=== PATIENT | female | born 1950 | race Caucasian/White ===

== ENCOUNTER → 2018-02-25 13:25 | Outpatient (CLI) | payer OTHER, SELFPAY | PROVIDERS: Family Provider Family Medicine; PCP Family Medicine; Visit Provider Physician Assistant | DX: R30.0 Dysuria (principal) | CPT/HCPCS: 87086 ==

== ENCOUNTER → 2018-02-28 16:02 | Outpatient (CLI) | payer OTHER, SELFPAY ==
[2018-02-28 17:45] LABS: Appearance Urine UA SL CLOUDY; Bilirubin Urine UA NEGATIVE (NEGATIVE); Color Urine UA YELLOW; Glucose Urine UA NEGATIVE (Normal); Ketones Urine UA NEGATIVE (NEGATIVE); Leukocyte Esterase Urine UA 1+ (NEGATIVE); Nitrite Urine UA Negative (Negative); Occult Blood Urine UA 3+ (Negative); Protein Urine UA NEGATIVE (Negative); Urobilinogen Urine UA 0.2 E.U./dL (0.2); pH Urine UA 7.5 (4.5-8.0)
[2018-02-28 17:55] LABS: Bacteria Urine Occasional (0-1); RBC Urine 10-30/HPF (0-5/HPF); Squamous Epithelial Cell Urine 0-1 /HPF; WBC Urine 5-10/HPF (0-5/HPF)
[2018-02-28 17:56] LABS: Culture Indicated Urine Specimen Cultured
== END ==
PROVIDERS: PCP Family Medicine; Visit Provider Family Medicine
DX: R31.9 Hematuria, unspecified (principal)
CPT/HCPCS: 81001; 87086

== ENCOUNTER → 2018-09-21 12:45 | Outpatient (CLI) | payer OTHER, SELFPAY ==
[2018-09-21 12:59] LABS: Bacteria Urine None Seen; RBC Urine None Seen (0-5/HPF)
[2018-09-21 13:23] LABS: Appearance Urine UA CLEAR; Bilirubin Urine UA NEGATIVE (NEGATIVE); Color Urine UA YELLOW; Glucose Urine UA NEGATIVE (Negative); Ketones Urine UA NEGATIVE (NEGATIVE); Leukocyte Esterase Urine UA NEGATIVE (NEGATIVE); Nitrite Urine UA NEGATIVE (Negative); Occult Blood Urine UA NEGATIVE (Negative); Protein Urine UA NEGATIVE (Negative); Specific Gravity Urine UA <=1.005 (1.000-1.035); Urobilinogen Urine UA 0.2 E.U./dL (0.2)
[2018-09-21 13:34] LABS: Culture Indicated Urine Cult Not Indicated; Squamous Epithelial Cell Urine 1-5 /HPF; WBC Urine 0-1/HPF (0-5/HPF)
== END ==
PROVIDERS: PCP Family Medicine; Visit Provider Family Medicine
DX: R30.0 Dysuria (principal)
CPT/HCPCS: 81001

== ENCOUNTER → 2018-12-13 16:48 | Outpatient (CLI) | payer OTHER, SELFPAY ==
[2018-12-13 16:54] LABS: Bacteria Urine None Seen; RBC Urine None Seen (0-5/HPF)
[2018-12-13 17:31] LABS: Hemoglobin A1C% w Est Avg Glu 6.1 % (4.0-6.0)
[2018-12-13 17:45] LABS: Appearance Urine UA CLEAR; Bilirubin Urine UA NEGATIVE (NEGATIVE); Blood Urea Nitrogen 9 mg/dL (7-17); C-Reactive Protein Quant 2.3 mg/dL (<1.0); Calcium 9.7 mg/dL (8.4-10.2); Carbon Dioxide 33 mmol/L (22-32); Chloride 91 mmol/L (98-107); Color Urine UA YELLOW; Estimated Glomerular Filt Rate > 60.0 mL/min (>60); Glucose 132 mg/dL (80-110); Glucose Urine UA NEGATIVE (Negative); HEMOLYSIS < 15 (0-50); Ketones Urine UA NEGATIVE (NEGATIVE); Leukocyte Esterase Urine UA NEGATIVE (NEGATIVE); Nitrite Urine UA NEGATIVE (Negative); Occult Blood Urine UA NEGATIVE (Negative); Potassium 3.5 mmol/L (3.4-5.1); Protein Urine UA NEGATIVE (Negative); Sodium 134 mmol/L (137-145); Specific Gravity Urine UA 1.015 (1.000-1.035); Urobilinogen Urine UA 0.2 E.U./dL (0.2)
[2018-12-13 17:54] LABS: Amorphous Sediment Urine 1+; Culture Indicated Urine Cult Not Indicated; Squamous Epithelial Cell Urine 1-5 /HPF (0-5/HPF); WBC Urine 0-1/HPF (0-5/HPF)
[2018-12-13 17:57] LABS: Creatinine Urine Random 67.3 mg/dL
[2018-12-13 18:13] LABS: Thyroid Stimulating Hormone 4.52 uIU/mL (0.47-4.68)
[2018-12-13 18:17] LABS: Microalbumi Creatinin Ratio Ur 8.9 ug/mg CR (<30); Microalbumin Urine Random < 0.6 mg/dL (0-1.6)
[2018-12-13 18:20] LABS: Erythrocyte Sedimentation Rate 21 MM/HR (0-20)
== END ==
PROVIDERS: PCP Family Medicine; Visit Provider Family Medicine
DX: E03.9 Hypothyroidism, unspecified (principal); E11.9 Type 2 diabetes mellitus without complications; I10 Essential (primary) hypertension; M35.00 Sjogren syndrome, unspecified; R30.0 Dysuria
CPT/HCPCS: 36415; 80048; 81001; 82043; 82570; 83036; 84443; 85651; 86140

== ENCOUNTER → 2019-04-02 11:10 | Outpatient (CLI) | payer OTHER, SELFPAY ==
[2019-04-02 12:19] LABS: Appearance Urine UA CLOUDY; Bilirubin Urine UA NEGATIVE (NEGATIVE); Glucose Urine UA TRACE g/dL (Negative); Ketones Urine UA TRACE (NEGATIVE); Leukocyte Esterase Urine UA 2+ (NEGATIVE); Nitrite Urine UA POSITIVE (Negative); Occult Blood Urine UA 3+ (Negative); Protein Urine UA 3+ (Negative)
[2019-04-02 12:29] LABS: Color Urine UA BROWN; pH Urine UA 6.5 (4.5-8.0)
[2019-04-02 13:37] LABS: Amorphous Sediment Urine 1+; Bacteria Urine Few (2-10); Culture Indicated Urine Specimen Cultured; RBC Urine 30-100/HPF (0-5/HPF); Squamous Epithelial Cell Urine 1-5 /HPF (0-5/HPF); WBC Urine 30-100/HPF (0-5/HPF)
== END ==
PROVIDERS: PCP Family Medicine; Visit Provider Family Medicine
DX: R30.0 Dysuria (principal); R35.0 Frequency of micturition
CPT/HCPCS: 81001; 87077; 87086; 87186

== ENCOUNTER → 2019-04-15 11:36 | Outpatient (CLI) | payer OTHER, SELFPAY ==
[2019-04-15 13:11] LABS: Appearance Urine UA CLEAR; Bilirubin Urine UA NEGATIVE (NEGATIVE); Color Urine UA YELLOW; Glucose Urine UA NEGATIVE (Negative); Ketones Urine UA NEGATIVE (NEGATIVE); Leukocyte Esterase Urine UA 3+ (NEGATIVE); Nitrite Urine UA NEGATIVE (Negative); Occult Blood Urine UA TRACE-LYSED (Negative); Protein Urine UA NEGATIVE (Negative); Specific Gravity Urine UA <=1.005 (1.000-1.035); Urobilinogen Urine UA 0.2 E.U./dL (0.2)
[2019-04-15 13:13] LABS: pH Urine UA 6.5 (4.5-8.0)
[2019-04-15 13:19] LABS: RBC Urine 1-5/HPF (0-5/HPF)
[2019-04-15 13:20] LABS: Bacteria Urine Many (>30); Culture Indicated Urine Cult Not Indicated; Squamous Epithelial Cell Urine 10-30 /HPF (0-5/HPF); WBC Urine >100/HPF (0-5/HPF)
== END ==
PROVIDERS: PCP Family Medicine; Visit Provider Family Medicine
DX: R30.0 Dysuria (principal); R31.9 Hematuria, unspecified
CPT/HCPCS: 81001; 87077; 87086; 87186

== ENCOUNTER → 2019-04-24 10:59 | Outpatient (CLI) | payer OTHER, SELFPAY ==
[2019-04-24 11:11] LABS: Bacteria Urine None Seen; RBC Urine None Seen (0-5/HPF); WBC Urine None Seen (0-5/HPF)
[2019-04-24 11:59] LABS: Appearance Urine UA CLEAR; Bilirubin Urine UA NEGATIVE (NEGATIVE); Color Urine UA YELLOW; Glucose Urine UA NEGATIVE (Negative); Ketones Urine UA NEGATIVE (NEGATIVE); Leukocyte Esterase Urine UA NEGATIVE (NEGATIVE); Nitrite Urine UA NEGATIVE (Negative); Occult Blood Urine UA NEGATIVE (Negative); Protein Urine UA NEGATIVE (Negative); Specific Gravity Urine UA <=1.005 (1.000-1.035); Urobilinogen Urine UA 0.2 E.U./dL (0.2)
[2019-04-24 12:48] LABS: Culture Indicated Urine Cult Not Indicated; Squamous Epithelial Cell Urine 10-30 /HPF (0-5/HPF)
== END ==
PROVIDERS: PCP Family Medicine; Visit Provider Family Medicine
DX: N39.0 Urinary tract infection, site not specified (principal)
CPT/HCPCS: 81001

== ENCOUNTER → 2019-10-15 16:15 | Outpatient (CLI) | payer OTHER, SELFPAY ==
[2019-10-15 16:50] LABS: Appearance Urine UA SL CLOUDY; Bilirubin Urine UA NEGATIVE (NEGATIVE); Color Urine UA YELLOW; Glucose Urine UA NEGATIVE (Negative); Ketones Urine UA NEGATIVE (NEGATIVE); Leukocyte Esterase Urine UA 2+ (NEGATIVE); Protein Urine UA NEGATIVE (Negative); Specific Gravity Urine UA <=1.005 (1.000-1.035)
[2019-10-15 16:59] LABS: Nitrite Urine UA NEGATIVE (Negative); Occult Blood Urine UA NEGATIVE (Negative); RBC Urine 0-1/HPF (0-5/HPF); pH Urine UA 6.5 (4.5-8.0)
[2019-10-15 17:00] LABS: Bacteria Urine Occasional (0-1); Culture Indicated Urine Specimen Cultured; Squamous Epithelial Cell Urine 0-1 /HPF (0-5/HPF); Transitional Epi Cells Urine 1-5/HPF (0-5/HPF); WBC Urine 30-100/HPF (0-5/HPF)
== END ==
PROVIDERS: PCP Family Medicine; Referring Provider Family Medicine; Visit Provider Family Medicine
DX: R30.0 Dysuria (principal)
CPT/HCPCS: 81001; 87086

== ENCOUNTER → 2020-08-03 12:22 | Outpatient (CLI) | payer OTHER, SELFPAY ==
[2020-08-03 13:50] LABS: Alanine Aminotransferase 11 IU/L (<35); Albumin 4.4 g/dL (3.5-5.0); Albumin Globulin Ratio 1.7 (1.0-2.8); Alkaline Phosphatase 65 U/L (38-126); Aspartate Aminotransferase 20 IU/L (14-36); BUN Creatinine Ratio 17.9 (6-22); Bilirubin Total 0.6 mg/dL (0.2-1.3); Blood Urea Nitrogen 10 mg/dL (7-17); Carbon Dioxide 35 mmol/L (22-32); Chloride 91 mmol/L (98-107); Estimated Glomerular Filt Rate > 60.0 mL/min (>60); Globulin 2.6 g/dL (1.7-4.1); Glucose 112 mg/dL (80-110); HEMOLYSIS < 15 (0-50); Potassium 4.3 mmol/L (3.4-5.1); Sodium 130 mmol/L (137-145)
[2020-08-03 13:53] LABS: Hemoglobin A1C% w Est Avg Glu 6.1 % (4.0-6.0)
[2020-08-03 14:33] LABS: Thyroid Stimulating Hormone 1.27 uIU/mL (0.47-4.68)
[2020-08-04 10:29] LABS: Creatinine Urine Random 21.6 mg/dL
[2020-08-04 10:35] LABS: Microalbumin Urine Random < 0.6 mg/dL (0-1.6)
== END ==
PROVIDERS: PCP Family Medicine; Referring Provider Family Medicine; Visit Provider Family Medicine
DX: E11.9 Type 2 diabetes mellitus without complications (principal)
CPT/HCPCS: 36415; 80053; 82043; 82570; 83036; 84443

== ENCOUNTER → 2020-08-12 11:06 | Outpatient (CLI) | payer OTHER, SELFPAY ==
[2020-08-12 12:02] LABS: BUN Creatinine Ratio 20.4 (6-22); Blood Urea Nitrogen 11 mg/dL (7-17); Calcium 9.7 mg/dL (8.4-10.2); Carbon Dioxide 32 mmol/L (22-32); Chloride 95 mmol/L (98-107); Estimated Glomerular Filt Rate > 60.0 mL/min (>60); Glucose 118 mg/dL (80-110); HEMOLYSIS < 15 (0-50); Potassium 4.3 mmol/L (3.4-5.1); Sodium 132 mmol/L (137-145)
== END ==
PROVIDERS: PCP Family Medicine; Referring Provider Family Medicine; Visit Provider Family Medicine
DX: E87.1 Hypo-osmolality and hyponatremia (principal)
CPT/HCPCS: 36415; 80048

== ENCOUNTER → 2020-09-14 11:01 | Outpatient (CLI) | payer OTHER, SELFPAY ==
[2020-09-14 12:17] LABS: BUN Creatinine Ratio 21.4 (6-22); Blood Urea Nitrogen 12 mg/dL (7-17); Calcium 9.3 mg/dL (8.4-10.2); Carbon Dioxide 31 mmol/L (22-32); Chloride 96 mmol/L (98-107); Estimated Glomerular Filt Rate > 60.0 mL/min (>60); Glucose 124 mg/dL (80-110); HEMOLYSIS < 15 (0-50); Potassium 4.3 mmol/L (3.4-5.1); Sodium 133 mmol/L (137-145)
== END ==
PROVIDERS: PCP Family Medicine; Referring Provider Family Medicine; Visit Provider Family Medicine
DX: E87.1 Hypo-osmolality and hyponatremia (principal)
CPT/HCPCS: 80048

== ENCOUNTER → 2020-12-16 11:46 | Outpatient (CLI) | payer OTHER, SELFPAY ==
[2020-12-16 11:51] LABS: Bacteria Urine None Seen; RBC Urine None Seen (0-5/HPF)
[2020-12-16 12:32] LABS: Appearance Urine UA CLEAR; Bilirubin Urine UA 1+ (NEGATIVE); Color Urine UA YELLOW; Glucose Urine UA NEGATIVE (Negative); Ketones Urine UA NEGATIVE (NEGATIVE); Leukocyte Esterase Urine UA TRACE (NEGATIVE); Nitrite Urine UA NEGATIVE (Negative); Occult Blood Urine UA NEGATIVE (Negative); Protein Urine UA NEGATIVE (Negative); Specific Gravity Urine UA 1.015 (1.000-1.035); Urobilinogen Urine UA 0.2 E.U./dL (0.2)
[2020-12-16 12:33] LABS: pH Urine UA 7.5 (4.5-8.0)
[2020-12-16 12:37] LABS: Ictotest Urine Negative (Negative)
[2020-12-16 12:40] LABS: Culture Indicated Urine Cult Not Indicated; Squamous Epithelial Cell Urine 5-10 /HPF (0-5/HPF); WBC Urine 1-5/HPF (0-5/HPF)
== END ==
PROVIDERS: PCP Family Medicine; Referring Provider Family Medicine; Visit Provider Family Medicine
DX: R30.0 Dysuria (principal)
CPT/HCPCS: 81001

== ENCOUNTER → 2021-02-09 11:06 | Outpatient (CLI) | payer OTHER, SELFPAY ==
[2021-02-09 12:26] LABS: Blood Urea Nitrogen 12 mg/dL (7-17); Calcium 9.7 mg/dL (8.4-10.2); Carbon Dioxide 30 mmol/L (22-32); Chloride 99 mmol/L (98-107); Estimated Glomerular Filt Rate > 60.0 mL/min (>60); Glucose 128 mg/dL (80-110); HEMOLYSIS < 15 (0-50); Sodium 135 mmol/L (137-145)
== END ==
PROVIDERS: PCP Family Medicine; Referring Provider Family Medicine; Visit Provider Family Medicine
DX: R79.89 Other specified abnormal findings of blood chemistry (principal)
CPT/HCPCS: 36415; 80048

== ENCOUNTER → 2021-04-16 11:22 | Outpatient (CLI) | payer OTHER, SELFPAY ==
[2021-04-16 12:29] LABS: Appearance Urine UA CLEAR; Bilirubin Urine UA NEGATIVE (NEGATIVE); Color Urine UA YELLOW; Glucose Urine UA NEGATIVE (Negative); Ketones Urine UA NEGATIVE (NEGATIVE); Leukocyte Esterase Urine UA NEGATIVE (NEGATIVE); Nitrite Urine UA NEGATIVE (Negative); Occult Blood Urine UA NEGATIVE (Negative); Protein Urine UA NEGATIVE (Negative); Urobilinogen Urine UA 0.2 E.U./dL (0.2)
[2021-04-16 12:31] LABS: pH Urine UA 7.5 (4.5-8.0)
[2021-04-16 12:33] LABS: Bacteria Urine None Seen; RBC Urine None Seen (0-5/HPF); Squamous Epithelial Cell Urine 0-1 /HPF (0-5/HPF); WBC Urine None Seen (0-5/HPF)
[2021-04-16 12:34] LABS: Culture Indicated Urine Cult Not Indicated
== END ==
PROVIDERS: PCP Family Medicine; Referring Provider Family Medicine; Visit Provider Family Medicine
DX: R30.0 Dysuria (principal); R82.90 Unspecified abnormal findings in urine
CPT/HCPCS: 81001

== ENCOUNTER → 2021-11-10 12:05 | Outpatient (CLI) | payer OTHER, SELFPAY | PROVIDERS: PCP Family Medicine; Visit Provider Family Medicine | DX: R30.0 Dysuria (principal) | CPT/HCPCS: 87086 ==

== ENCOUNTER → 2022-01-11 10:59 | Outpatient (CLI) | payer OTHER, SELFPAY ==
[2022-01-11 12:20] LABS: Hemoglobin A1C% w Est Avg Glu 5.7 % (4.0-6.0)
[2022-01-11 12:53] LABS: Alanine Aminotransferase 12 IU/L (<35); Albumin 4.4 g/dL (3.5-5.0); Albumin Globulin Ratio 1.6 (1.0-2.8); Alkaline Phosphatase 53 U/L (38-126); Aspartate Aminotransferase 22 IU/L (14-36); BUN Creatinine Ratio 16.1 (6-22); Bilirubin Total 0.5 mg/dL (0.2-1.3); Blood Urea Nitrogen 9 mg/dL (7-17); Calcium 9.1 mg/dL (8.4-10.2); Carbon Dioxide 31 mmol/L (22-32); Chloride 97 mmol/L (98-107); Estimated Glomerular Filt Rate > 60 mL/min (>60); Globulin 2.7 g/dL (1.7-4.1); Glucose 108 mg/dL (80-110); HEMOLYSIS < 15 (0-50); Sodium 135 mmol/L (137-145); Total Protein 7.1 g/dL (6.3-8.2)
== END ==
PROVIDERS: PCP Family Medicine; Referring Provider Family Medicine; Visit Provider Family Medicine
DX: E03.9 Hypothyroidism, unspecified (principal); E11.9 Type 2 diabetes mellitus without complications
CPT/HCPCS: 36415; 80053; 83036; 84443

== ENCOUNTER → 2022-06-28 15:08 | Outpatient (ROUT) | payer OTHER, SELFPAY | PROVIDERS: PCP Family Medicine; Visit Provider Dermatology | DX: L72.8 Other follicular cysts of the skin and subcutaneous tissue (principal) | CPT/HCPCS: 87070; 87075; 87077; 87147; 87186; 87205 ==

== ENCOUNTER → 2023-01-19 10:58 | Outpatient (CLI) | payer OTHER, SELFPAY ==
[2023-01-19 12:47] LABS: Alanine Aminotransferase 17 IU/L (<35); Albumin 4.4 g/dL (3.5-5.0); Albumin Globulin Ratio 1.4 (1.0-2.8); Alkaline Phosphatase 45 U/L (38-126); Aspartate Aminotransferase 22 IU/L (14-36); Bilirubin Total 0.6 mg/dL (0.2-1.3); Blood Urea Nitrogen 12 mg/dL (7-17); Calcium 9.5 mg/dL (8.4-10.2); Carbon Dioxide 32 mmol/L (22-32); Chloride 98 mmol/L (98-107); Estimated Glomerular Filt Rate > 60 mL/min (>60); Globulin 3.2 g/dL (1.7-4.1); Glucose 115 mg/dL (80-110); HDL Cholesterol 96 mg/dL (40-60); HEMOLYSIS < 15 (0-50); Potassium 3.9 mmol/L (3.4-5.1); Sodium 136 mmol/L (137-145); Total Protein 7.6 g/dL (6.3-8.2); Triglycerides 98 mg/dL (35-150)
[2023-01-19 13:07] LABS: Creatinine Urine Random 101.6 mg/dL
[2023-01-19 13:14] LABS: Microalbumi Creatinin Ratio Ur 8.8 ug/mg CR (<30); Microalbumin Urine Random 0.9 mg/dL (0-1.6)
[2023-01-19 13:16] LABS: TSH w/ Reflex to FT4 2.47 uIU/mL (0.47-4.68)
[2023-01-19 13:28] LABS: Cholesterol 333 mg/dL (140-199); LDL Cholesterol Calculated 217 mg/dL (<100)
[2023-01-20 03:22] LABS: Labcorp Hemoglobin (Hb) A1c 5.7 % (4.8-5.6)
[2023-01-25 21:33] LABS: 1,25-Dihydroxy, Vitamin D-2 <10 pg/mL (.)
== END ==
PROVIDERS: PCP Family Medicine; Referring Provider Family Medicine; Visit Provider Family Medicine
DX: E55.9 Vitamin D deficiency, unspecified; E03.9 Hypothyroidism, unspecified; E11.9 Type 2 diabetes mellitus without complications; E78.5 Hyperlipidemia, unspecified; I10 Essential (primary) hypertension
CPT/HCPCS: 36415; 80053; 80061; 82043; 82570; 82652; 83036; 84443

== ENCOUNTER → 2024-01-19 12:06 | Outpatient (CLI) | payer OTHER, SELFPAY ==
[2024-01-19 13:02] LABS: Alanine Aminotransferase 15 IU/L (<35); Albumin 4.1 g/dL (3.5-5.0); Albumin Globulin Ratio 1.6 (1.0-2.8); Alkaline Phosphatase 52 U/L (38-126); Aspartate Aminotransferase 23 IU/L (14-36); Bilirubin Total 0.8 mg/dL (0.2-1.3); Blood Urea Nitrogen 13 mg/dL (7-17); Calcium 9.6 mg/dL (8.4-10.2); Carbon Dioxide 31 mmol/L (22-32); Chloride 103 mmol/L (98-107); Estimated Glomerular Filt Rate > 60 mL/min (>60); Globulin 2.6 g/dL (1.7-4.1); Glucose 94 mg/dL (80-110); HEMOLYSIS < 15 (0-50); Potassium 4.2 mmol/L (3.4-5.1); Sodium 139 mmol/L (137-145); Total Protein 6.7 g/dL (6.3-8.2)
[2024-01-19 15:02] LABS: Creatinine Urine Random 26.41 mg/dL
[2024-01-19 15:06] LABS: Microalbumin Urine Random 0.6 mg/dL (0-1.6)
== END ==
PROVIDERS: PCP Family Medicine; Referring Provider Family Medicine; Visit Provider Family Medicine
DX: E11.9 Type 2 diabetes mellitus without complications (principal); E03.9 Hypothyroidism, unspecified; I10 Essential (primary) hypertension
CPT/HCPCS: 36415; 80053; 82043; 82570

== ENCOUNTER 2024-03-19 13:04 | Emergency (ER) | payer OTHER, SELFPAY ==
[2024-03-19] VITALS (51 sets, daily range): BP systolic 138–220; BP diastolic 67–100; PULSE 90–126; RESP 17–38; TEMP 36.6–37.9; O2SAT 90–100; BMI 33.3
--- NOTE | 2024-03-19 13:23 | EKG_ITS ---
[facility] [address] [place] [address] Test Date: 2024-03-19 Pat Name: Pilar Hidalgo Department: [facility] Room: Gender: Female [employer] Supervisor: WILLA : 1950 Requested By: Order Number: [id number] Reading MD: Aman Benjamin MD Measurements Intervals [place] Rate: 99 P: 50 NV: 164 QRS: 16 QRSD: 88 T: 69 QT: 386 QTc: 495 Interpretive Statements Sinus rhythm with occasional premature ventricular complexes Possible Left atrial enlargement Left ventricular hypertrophy with repolarization abnormality ( [place] product ) Prolonged QT Electronically Signed On 03-19-2024 16:18:21 PDT by Aman Benjamin MD
--- NOTE | 2024-03-19 13:24 | ED_ITS ---
HPI - General Adult <Essie Huddleston MD - Last Filed: 03/20/24 07:04> General Chief complaint: Abdominal Pain Stated complaint: abd pain, gas Time Seen by Provider: 03/19/24 13:23 Source: patient Mode of arrival: Ambulatory History of Present Illness HPI narrative: 73-year-old woman with a history of Sjogren syndrome, type 2 diabetes, history of irritable bowel, gastric reflux with significant amounts of upper gas and belching for which she currently is on omeprazole and famotidine and finding that has not very helpful. Last night she had so much gas that she was not able to belch that she was unable to sleep. She describes upper abdominal pain and general. She has been trying to lose weight but has not been completely successful with that. She has not describing dyspnea, orthopnea. She notes she did have some chest pain associated with the inability to burp last night. This morning she had 2 episodes of vomiting. She has never had any surgeries. She notes she has been a bit more constipated lately but basically feels her bowels are stable. She has no other complaints today Related Data Home Medications Medication Instructions Recorded Confirmed cholecalciferol (vitamin D3) 50 2,000 unit PO ##0 01/02/17 01/19/24 mcg (2,000 unit) capsule (Vitamin D3) potassium 99 mg tablet 99 mg PO ##0 01/02/17 01/19/24 Previous Rx's Medication Instructions Recorded Glucose: Home Monitoring Kit kit QDAY ##1 07/14/17 oxyquinoline 0.025 %-sodium lauryl 1 ea vaginal .COMPLEX #113.4 grams 12/20/21 sulfate 0.01 % vaginal gel betamethasone valerate 0.1 % 1 applic topical DAILY PRN rash 03/22/22 topical ointment #45 grams cyclobenzaprine 10 mg tablet See Rx Instructions .Route 03/31/22 .COMPLEX #90 tabs Glucose: Test Strips #1 ea 06/24/22 levothyroxine 25 mcg tablet 25 mcg PO DAILY #90 tabs 11/21/23 omeprazole 40 mg capsule,delayed 40 mg PO DAILY #14 caps 01/19/24 release famotidine 20 mg tablet 20 mg PO BID #60 tabs 01/23/24 blood sugar diagnostic (OneTouch #100 strips 01/29/24 Ultra Test strips) lancets 33 gauge (OneTouch Delica #100 ea 01/29/24 Plus Lancet) Allergies Allergy/AdvReac Type Severity Reaction Status Date / Time clindamycin [CLINDAMYCIN] Allergy Mild hives Verified 03/19/24 13:18 azithromycin [From ZITHROMAX] Allergy Unknown Rash Verified 03/19/24 13:18 Penicillins [PENICILLINS] Allergy Unknown Throat Verified 03/19/24 13:11 tightening Sulfa (Sulfonamide Allergy Unknown Unknown Verified 03/19/24 13:11 Antibiotics) [SULFA (SULFONAMIDE ANTIBIOTICS)] boric acid [From Trimo-Gifford] AdvReac Intermediate skin Verified 03/19/24 13:11 irritation oxyquinoline [From Trimo-Gifford] AdvReac Intermediate skin Verified 03/19/24 13:11 irritation Review of Systems <Essie Huddleston MD - Last Filed: 03/20/24 07:04> Review of Systems Narrative: Pertinent positive and negative findings as per HPI Patient History <Essie Huddleston MD - Last Filed: 03/20/24 07:04> Medical History Allergies Herpes Sjogren's syndrome Seasonal allergies Anxiety Ocular migraine Fibromyalgia Acne Floaters in visual field Prolapsed uterus (~1985) Irritable bladder Irritable bowel syndrome Hypothyroidism (~1989) Diabetes mellitus (~1989) Hypertension Surgical History Anesthesia History of oral surgery (~02/2017) History of tonsillectomy Family History Father Heart disease Alopecia Grandfather Heart disease Mother Skin cancer Grandmother Stroke Social History Smoking Status: Never smoker second hand exposure: No alcohol intake: current substance use type: does not use Smoking Status: Never smoker Substance Use Type: marijuana Exam <Essie Huddleston MD - Last Filed: 03/20/24 07:04> Initial Vital Signs Initial Vital Signs: Vital Signs Temperature 97.8 F 03/19/24 13:12 Pulse Rate 90 03/19/24 13:12 Respiratory Rate 17 03/19/24 13:12 Blood Pressure 189/87 H 03/19/24 13:12 Pulse Oximetry 96 03/19/24 13:12 Oxygen Delivery Method Room Air 03/19/24 13:12 General: Healthy appearing, in no acute distress. Able to give a complete and coherent history. Well-nourished well-developed HEENT: Moist mucous membranes, normal sclera with reactive pupils, Neck: No JVD, supple Respiratory: Lungs are clear to auscultation, no wheezing no rales no rhonchi. Full and symmetrical air movement Cardiac: Regular rate and rhythm with a harsh 4/6 systolic murmur heard over the entire precordium Abdomen: Soft, tender across the entire upper epigastrium without rebound or guarding. No flank pain Skin: Warm and dry, no rashes Neurologic: Grossly neurologically intact with no obvious asymmetries or abnormalities Extremities: No trauma, well perfused Psych: Cooperative, appropriate insight and affect <Robinson Bolivar MD - Last Filed: 03/20/24 01:26> Initial Vital Signs Initial Vital Signs: Vital Signs Temperature 97.8 F 03/19/24 13:12 Pulse Rate 90 03/19/24 13:12 Respiratory Rate 17 03/19/24 13:12 Blood Pressure 189/87 H 03/19/24 13:12 Pulse Oximetry 96 03/19/24 13:12 Oxygen Delivery Method Room Air 03/19/24 13:12 Course <Essie Huddleston MD - Last Filed: 03/20/24 07:04> Orders Ordered: Discontinued Medications Hydromorphone HCl (Hydromorphone 0.5 Mg Inj) 0.5 mg IV Q15MIN PRN PRN Reason: Pain, Last Admin: 03/20/24 00:56 Dose: 0.5 mg Documented By: Admin: 03/19/24 23:10 Dose: 0.5 mg Documented By: Admin: 03/19/24 15:32 Dose: 0.5 mg Documented By: GI Ceftriaxone Sodium 2,000 mg/ (Sodium Chloride) 100 mls @ 200 mls/hr IV NOW ONE Stop: 03/19/24 15:24 Last Infusion: 03/19/24 16:14 Dose: Infused Documented By: Admin: 03/19/24 15:37 Dose: 200 mls/hr Documented By: GI Metronidazole (Flagyl) 500 mg in 100 mls @ 100 mls/hr IV NOW ONE Stop: 03/19/24 16:22 Last Infusion: 03/19/24 17:38 Dose: Infused Documented By: Admin: 03/19/24 16:15 Dose: 100 mls/hr Documented By: GI Sodium Chloride (Normal Saline 0.9%) 1,000 mls @ 150 mls/hr IV CONT ANEUDY Last Admin: 03/20/24 00:16 Dose: 150 mls/hr Documented By: Infusion: 03/20/24 00:15 Dose: Infused Documented By: Infusion: 03/19/24 17:38 Dose: 150 mls/hr Documented By: Infusion: 03/19/24 16:20 Dose: 0 mls/hr Documented By: Admin: 03/19/24 16:09 Dose: 150 mls/hr Documented By: GI Ketorolac Tromethamine (Ketorolac 30 Mg/Ml Vial) 15 mg IV NOW ONE Stop: 03/19/24 19:05 Last Admin: 03/19/24 19:11 Dose: 15 mg Documented By: RADHA Ondansetron HCl (Ondansetron 4 Mg/2 Ml Inj) 4 mg IV NOW PRN PRN Reason: Nausea And Vomiting Last Admin: 03/19/24 14:11 Dose: 4 mg Documented By: GI Ondansetron HCl (Ondansetron 4 Mg Odt) 4 mg PO NOW PRN PRN Reason: Nausea And Vomiting Ondansetron HCl (Ondansetron 4 Mg/2 Ml Inj) 4 mg IV NOW ONE Stop: 03/20/24 00:54 Last Admin: 03/20/24 00:56 Dose: 4 mg Documented By: GI Vital Signs Vital signs: Vital Signs - 8 hr 03/19/24 23:11 03/19/24 23:11 03/19/24 23:25 Pulse Rate 105 H Respiratory Rate 18 Blood Pressure 161/78 H 142/69 H Pulse Oximetry 96 Oxygen Delivery Method Oxygen Flow Rate 03/19/24 23:25 03/19/24 23:30 03/19/24 23:30 Pulse Rate 105 H 102 H Respiratory Rate 22 19 Blood Pressure 138/67 Pulse Oximetry 95 95 Oxygen Delivery Method Oxygen Flow Rate 03/20/24 00:00 03/20/24 00:00 03/20/24 00:30 Pulse Rate 100 H 101 H Respiratory Rate 16 23 Blood Pressure 143/69 H Pulse Oximetry 95 96 Oxygen Delivery Method Nasal Cannula Oxygen Flow Rate 2 03/20/24 00:30 Pulse Rate Respiratory Rate Blood Pressure 146/69 H Pulse Oximetry Oxygen Delivery Method Oxygen Flow Rate <Robinson Bolivar MD - Last Filed: 03/20/24 01:26> Orders Ordered: Discontinued Medications Hydromorphone HCl (Hydromorphone 0.5 Mg Inj) 0.5 mg IV Q15MIN PRN PRN Reason: Pain, Last Admin: 03/20/24 00:56 Dose: 0.5 mg Documented By: Admin: 03/19/24 23:10 Dose: 0.5 mg Documented By: Admin: 03/19/24 15:32 Dose: 0.5 mg Documented By: SB Ceftriaxone Sodium 2,000 mg/ (Sodium Chloride) 100 mls @ 200 mls/hr IV NOW ONE Stop: 03/19/24 15:24 Last Infusion: 03/19/24 16:14 Dose: Infused Documented By: Admin: 03/19/24 15:37 Dose: 200 mls/hr Documented By: SB Metronidazole (Flagyl) 500 mg in 100 mls @ 100 mls/hr IV NOW ONE Stop: 03/19/24 16:22 Last Infusion: 03/19/24 17:38 Dose: Infused Documented By: Admin: 03/19/24 16:15 Dose: 100 mls/hr Documented By: SB Sodium Chloride (Normal Saline 0.9%) 1,000 mls @ 150 mls/hr IV CONT ANEUDY Last Admin: 03/20/24 00:16 Dose: 150 mls/hr Documented By: Infusion: 03/20/24 00:15 Dose: Infused Documented By: Infusion: 03/19/24 17:38 Dose: 150 mls/hr Documented By: Infusion: 03/19/24 16:20 Dose: 0 mls/hr Documented By: Admin: 03/19/24 16:09 Dose: 150 mls/hr Documented By: SB Ketorolac Tromethamine (Ketorolac 30 Mg/Ml Vial) 15 mg IV NOW ONE Stop: 03/19/24 19:05 Last Admin: 03/19/24 19:11 Dose: 15 mg Documented By: RADHA Ondansetron HCl (Ondansetron 4 Mg/2 Ml Inj) 4 mg IV NOW PRN PRN Reason: Nausea And Vomiting Last Admin: 03/19/24 14:11 Dose: 4 mg Documented By: SB Ondansetron HCl (Ondansetron 4 Mg Odt) 4 mg PO NOW PRN PRN Reason: Nausea And Vomiting Ondansetron HCl (Ondansetron 4 Mg/2 Ml Inj) 4 mg IV NOW ONE Stop: 03/20/24 00:54 Last Admin: 03/20/24 00:56 Dose: 4 mg Documented By: SB Vital Signs Vital signs: Vital Signs - 8 hr 03/19/24 23:11 03/19/24 23:11 03/19/24 23:25 Pulse Rate 105 H Respiratory Rate 18 Blood Pressure 161/78 H 142/69 H Pulse Oximetry 96 Oxygen Delivery Method Oxygen Flow Rate 03/19/24 23:25 03/19/24 23:30 03/19/24 23:30 Pulse Rate 105 H 102 H Respiratory Rate 22 19 Blood Pressure 138/67 Pulse Oximetry 95 95 Oxygen Delivery Method Oxygen Flow Rate 03/20/24 00:00 03/20/24 00:00 03/20/24 00:30 Pulse Rate 100 H 101 H Respiratory Rate 16 23 Blood Pressure 143/69 H Pulse Oximetry 95 96 Oxygen Delivery Method Nasal Cannula Oxygen Flow Rate 2 03/20/24 00:30 Pulse Rate Respiratory Rate Blood Pressure 146/69 H Pulse Oximetry Oxygen Delivery Method Oxygen Flow Rate Medical Decision Making <Essie Huddleston MD - Last Filed: 03/20/24 07:04> Lab Data 03/19/24 13:28 03/19/24 13:28 Labs: Lab Results 03/19/24 03/19/24 Range/Units 13:28 14:35 WBC 12.8 H (4.5-11.0) X10^3/uL RBC 4.00 (4.0-5.2) X10^6/uL Hgb 11.6 L (12.0-16.0) g/dL Hct 35.3 L (36-46) % MCV 88.4 (80-100) fL MCH 28.9 (26-34) PG MCHC 32.7 (30-36) % RDW 14.7 (11.6-14.8) % Plt Count 313 (150-400) X10^3/uL Neut % (Auto) 92.5 H (50-75) % Lymph % (Auto) 2.8 L (25-40) % [place] % (Auto) 4.5 (3-14) % Eos % (Auto) 0.0 L (2-4) % Baso % (Auto) 0.2 (0-2) % Neut # (Auto) 50093 H (1102-8069) /uL Lymph # (Auto) 400 L (5128-0959) /uL [place] # (Auto) 600 (0-900) /uL Eos # (Auto) 0 (0-450) /uL Baso # (Auto) 0 (0-100) /uL PT 12.8 H (9.4-12.5) SECONDS INR 1.1 (0.9-1.3) Sodium 137 (137-145) mmol/L Potassium 3.6 (3.4-5.1) mmol/L Chloride 97 L (98-107) mmol/L Carbon Dioxide 30 (22-32) mmol/L BUN 9 (7-17) mg/dL Creatinine 0.57 (0.52-1.04) mg/dL Estimated GFR > 60 (>60) mL/min BUN/Creatinine Ratio 15.8 (6-22) Glucose 197 H (80-110) mg/dL Calcium 10.2 (8.4-10.2) mg/dL Total Bilirubin 4.4 H (0.2-1.3) mg/dL AST 475 H (14-36) IU/L ALT 263 H (<35) IU/L Alkaline Phosphatase 382 H (38-126) U/L Total Protein 7.1 (6.3-8.2) g/dL Albumin 4.4 (3.5-5.0) g/dL Globulin 2.7 (1.7-4.1) g/dL Albumin/Globulin Ratio 1.6 (1.0-2.8) Lipase 68 (23-300) U/L Urine RBC None seen (0-5/HPF) Urine WBC 1-5/hpf (0-5/HPF) Ur Squamous Epith Cells 1-5 /hpf (0-5/HPF) Urine Bacteria Occasional (0-1) (None) Ur Culture Indicated? Cult not indicated Vol Urine Centrifuged 10ml (spun) Urine Dip Bedside Urine Glucose Negative Bedside Urine Bilirubin - Negative Bedside Urine Ketone ++ 40 Urine Specific [place] 1.010 Bedside Urine Occult Blood - Negative Bedside Urine pH 8.0 Bedside Urine Protein - Negative Bedside Urine Urobilinogen - Negative Bedside Urine Nitrite - Negative Bedside Urine Leukocytes ++ 125 Esterase Point of care testing: Urine Dip Bedside Urine Glucose Negative Bedside Urine Bilirubin - Negative Bedside Urine Ketone ++ 40 Urine Specific [place] 1.010 Bedside Urine Occult Blood - Negative Bedside Urine pH 8.0 Bedside Urine Protein - Negative Bedside Urine Urobilinogen - Negative Bedside Urine Nitrite - Negative Bedside Urine Leukocytes ++ [address] scan - abdomen/pelvis: Radiologist's Impression: PROCEDURE: CT ABDOMEN PELVIS W CON INDICATIONS: inceased epigastric pain and eructation TECHNIQUE: After the administration of intravenous contrast, axial sections acquired from the lung bases to the pubic symphysis. Coronal and sagittal reformats were performed. For radiation dose reduction, the following was used: automated exposure control, adjustment of mA and/or kV according to patient size. COMPARISON: None. FINDINGS: Image quality: Diagnostic. Lower Chest: Small to moderate right pleural effusion and small left pleural effusion is seen with adjacent compressive atelectasis in posterior aspect of bilateral lung deluna . Hazy ground-glass opacity throughout visualized bilateral mid to lower lung field is seen suggestive of pulmonary edema. Heart size is enlarged, no pericardial effusion. Dense atherosclerotic calcifications throughout coronary vessels are noted. ABDOMEN: Liver: No solid mass. Gallbladder: Gallbladder is distended. At least 3 calcified stones are noted in gallbladder lumen dependent portion measures up to 1.9 cm in size. No gallbladder wall thickening. Biliary ducts: There is intrahepatic biliary ductal dilatation and marked dilatation of common bile duct measures up to 1.7 cm in diameter series 4, image 28. Partially calcified stones are noted in distal common bile duct and measures in aggregate 1.1 cm in size series 2, image 57 and series 4 image 27. Pancreas: No ductal dilation. Spleen: Size is within normal limits. Adrenal Glands: No adrenal nodules. Kidneys and Ureters: No hydronephrosis. No solid mass. No complex renal cystic lesion which requires follow up. Stomach and Bowel: There is no bowel obstruction. No gastric or small bowel wall thickening. Colonic diverticulosis is seen without CT evidence of acute diverticulitis. No abscess collection. Peritoneum: No abnormal intraperitoneal fluid. No free air. Ventral Wall: No significant ventral hernia. Abdominal Nodes: No retroperitoneal or mesenteric adenopathy by size criteria. Vessels: Aorta and inferior vena cava are normal in size. PELVIS: Pelvic Organs: Pessary device is noted. No gross abnormality is seen in uterus and bilateral adnexa. Bladder: No bladder wall thickening, accounting for underdistention. Pelvic Nodes: No enlarged lymph nodes. Miscellaneous: No inguinal hernias are seen. Bones: No aggressive osseous abnormality. IMPRESSION: 1. Cholelithiasis with choledocholithiasis as described above. Intrahepatic biliary ductal dilatation and dilatation of common bile duct measures up to 1.7 cm in diameter. No significant gallbladder wall thickening or pericholecystic fluid. 2. No bowel obstruction or abnormal bowel wall thickening. Colonic diverticulosis without CT evidence of acute diverticulitis. No abscess collection. No free fluid or free air. 3. Right greater than left bilateral pleural effusion and adjacent pulmonary atelectasis. Hazy ground-glass opacities in bilateral aerated lung deluna suggestive of pulmonary edema. Dictated by: Josiah Gabriel M.D. on 03/19/2024 at 14:40 MDM Narrative Medical decision making narrative: CC: Upper abdominal pain, unable to burp last night emesis today increasing pain Complicating co-morbidities: Describes frequent episodes of painful burping and gas, taking proton pump inhibitor and H2 clifton for this which is not been effective. Hypothyroidism Data collected from: patient Medical records reviewed: Primary care note from January 18 is reviewed Differential considered: Partial bowel obstruction, complete bowel obstruction, upper abdominal neoplasm, cholecystitis, pancreatitis Exam documented above, pertinent findings include: Patient is tender in the upper quadrants of the abdomen with remainder of exam fairly benign Lab Test results independently reviewed as above. Pertinent findings: CBC shows mild leukocytosis at 12.8 H&H is 11.6 and 35.3. Neutrophils show 92.5%. Platelets are appropriate Chemistries are notable for normal electrolytes normal renal function glucose slightly elevated LFTs were significantly elevated with bilirubin at 4.4, AST at 475 ALT at 263 alk-phos at 382 Lipase is unremarkable Independently reviewed EKG: Sinus rhythm with occasional PVC. QTC is at 495. No acute ischemic changes appreciated Imaging studies independently reviewed: CT scan shows choledocholithiasis, bilirubin AST ALT and alk-phos are all elevated. She also has cholecystitis without pericholecystic fluid. Ascending cholangitis is also of concern Consultations: Dr Oneal, GI at [facility], will consult. Needs ERCP. Talk to radiology supervisor and medicine admit service Treatments: Re-evaluations: After coming back from CT scan, patient was offer oxygen briefly room air sats were at 82% with increasing dyspnea nausea tachypnea. Blood pressure increasing and heart rate increasing. On non-rebreather 100% saturations with respiratory rate 26-32. I suspect that some of her symptoms are secondary to pain, we will add narcotics as well as antibiotics to cover for possibility of cholangitis and developing cholecystitis in the setting of her common bile duct stones with obstruction Discussion: <Robinson Bolivar MD - Last Filed: 03/20/24 01:26> Lab Data Labs: Lab Results 03/19/24 03/19/24 Range/Units 13:28 14:35 WBC 12.8 H (4.5-11.0) X10^3/uL RBC 4.00 (4.0-5.2) X10^6/uL Hgb 11.6 L (12.0-16.0) g/dL Hct 35.3 L (36-46) % MCV 88.4 (80-100) fL MCH 28.9 (26-34) PG MCHC 32.7 (30-36) % RDW 14.7 (11.6-14.8) % Plt Count 313 (150-400) X10^3/uL Neut % (Auto) 92.5 H (50-75) % Lymph % (Auto) 2.8 L (25-40) % [place] % (Auto) 4.5 (3-14) % Eos % (Auto) 0.0 L (2-4) % Baso % (Auto) 0.2 (0-2) % Neut # (Auto) 28110 H (6610-8911) /uL Lymph # (Auto) 400 L (4714-8506) /uL [place] # (Auto) 600 (0-900) /uL Eos # (Auto) 0 (0-450) /uL Baso # (Auto) 0 (0-100) /uL PT 12.8 H (9.4-12.5) SECONDS INR 1.1 (0.9-1.3) Sodium 137 (137-145) mmol/L Potassium 3.6 (3.4-5.1) mmol/L Chloride 97 L (98-107) mmol/L Carbon Dioxide 30 (22-32) mmol/L BUN 9 (7-17) mg/dL Creatinine 0.57 (0.52-1.04) mg/dL Estimated GFR > 60 (>60) mL/min BUN/Creatinine Ratio 15.8 (6-22) Glucose 197 H (80-110) mg/dL Calcium 10.2 (8.4-10.2) mg/dL Total Bilirubin 4.4 H (0.2-1.3) mg/dL AST 475 H (14-36) IU/L ALT 263 H (<35) IU/L Alkaline Phosphatase 382 H (38-126) U/L Total Protein 7.1 (6.3-8.2) g/dL Albumin 4.4 (3.5-5.0) g/dL Globulin 2.7 (1.7-4.1) g/dL Albumin/Globulin Ratio 1.6 (1.0-2.8) Lipase 68 (23-300) U/L Urine RBC None seen (0-5/HPF) Urine WBC 1-5/hpf (0-5/HPF) Ur Squamous Epith Cells 1-5 /hpf (0-5/HPF) Urine Bacteria Occasional (0-1) (None) Ur Culture Indicated? Cult not indicated Vol Urine Centrifuged 10ml (spun) Urine Dip Bedside Urine Glucose Negative Bedside Urine Bilirubin - Negative Bedside Urine Ketone ++ 40 Urine Specific [place] 1.010 Bedside Urine Occult Blood - Negative Bedside Urine pH 8.0 Bedside Urine Protein - Negative Bedside Urine Urobilinogen - Negative Bedside Urine Nitrite - Negative Bedside Urine Leukocytes ++ 125 Esterase Point of care testing: Urine Dip Bedside Urine Glucose Negative Bedside Urine Bilirubin - Negative Bedside Urine Ketone ++ 40 Urine Specific [place] 1.010 Bedside Urine Occult Blood - Negative Bedside Urine pH 8.0 Bedside Urine Protein - Negative Bedside Urine Urobilinogen - Negative Bedside Urine Nitrite - Negative Bedside Urine Leukocytes ++ 125 Esterase MDM Narrative Medical decision making narrative: CC: Upper abdominal pain, unable to burp last night emesis today increasing pain Complicating co-morbidities: Describes frequent episodes of painful burping and gas, taking proton pump inhibitor and H2 clifton for this which is not been effective. Hypothyroidism Data collected from: patient Medical records reviewed: Primary care note from January 18 is reviewed Differential considered: Partial bowel obstruction, complete bowel obstruction, upper abdominal neoplasm, cholecystitis, pancreatitis Exam documented above, pertinent findings include: Patient is tender in the upper quadrants of the abdomen with remainder of exam fairly benign Lab Test results independently reviewed as above. Pertinent findings: CBC shows mild leukocytosis at 12.8 H&H is 11.6 and 35.3. Neutrophils show 92.5%. Platelets are appropriate Chemistries are notable for normal electrolytes normal renal function glucose slightly elevated LFTs were significantly elevated with bilirubin at 4.4, AST at 475 ALT at 263 alk-phos at 382 Lipase is unremarkable Independently reviewed EKG: Sinus rhythm with occasional PVC. QTC is at 495. No acute ischemic changes appreciated Imaging studies independently reviewed: CT scan shows choledocholithiasis, bilirubin AST ALT and alk-phos are all elevated. She also has cholecystitis without pericholecystic fluid. Ascending cholangitis is also of concern Consultations: Dr Oneal, GI at [facility], will consult. Needs ERCP. Talk to radiology supervisor and medicine admit service Treatments: Re-evaluations: After coming back from CT scan, patient was offer oxygen briefly room air sats were at 82% with increasing dyspnea nausea tachypnea. Blood pressure increasing and heart rate increasing. On non-rebreather 100% saturations with respiratory rate 26-32. I suspect that some of her symptoms are secondary to pain, we will add narcotics as well as antibiotics to cover for possibility of cholangitis and developing cholecystitis in the setting of her common bile duct stones with obstruction Discussion: 03/19/2024, 6:00 p.m., [place]. 73-year-old female with abdominal pain and belching, EKG normal sinus rhythm without ischemia, screening labs included elevated T bili 4.4, AST 475, AST 263, alk phos 300s, lipase normal. CT abdomen and pelvis imaging shows presence of GB stones and suspected choledocholithiasis with common bile duct dilatation 1.7 cm along with intrahepatic ductal dilitation. History of penicillin allergy. IV ceftriaxone and IV Flagyl given, well tolerated. No GI/ERCP services available here, transfer for higher level of care. Case has been discussed prior with [facility], accepted for transfer, however no beds available there, await listed. Patient is not on any blood thinner medications. Alternate bed search in progress. Assumed interim care. 1999, case discussed with [facility] Gastroenterology Dr. White, he can consult, await call back from hospitalist service. 2019, case discussed with [facility] hospitalist Dr. Beatty, he can accept for transfer, however they have no beds at this time, patient is wait listed. [employer] to further query other facilities. 2224, callback from [facility], bed available, nurse to nurse report requested at 11:00 p.m., then we will arrange transport. Keep NPO 0030, EMS here for ground ALS transport to [facility] Discharge Plan Departure Patient Disposition: [facility] Clinical Impression: Choledocholithiasis with obstruction Qualifiers: Cholecystitis presence: without cholecystitis Qualified Code(s): K80.51 - Calculus of bile duct without cholangitis or cholecystitis with obstruction Cholelithiasis Qualifiers: Cholelithiasis location: gallbladder and bile duct Cholecystitis presence: w ithout cholecystitis Biliary obstruction: with biliary obstruction Qualified Code(s): K80.71 - Calculus of gallbladder and bile duct without cholecystitis with obstruction Prescriptions: No Action omeprazole 40 mg capsule,delayed release(DR/EC) 40 mg PO DAILY Qty: 14 0RF potassium 99 MG tablet 99 mg PO Qty: 0 cholecalciferol (vitamin D3) [Vitamin D3] 2,000 UNIT capsule 2,000 unit PO Qty: 0 Glucose: Home Monitoring Kit QDAY Qty: 1 0RF oxyquinoline-sod.lauryl sulfat 0.025-0.01 % gel 1 ea vaginal .COMPLEX Qty: 113.4 1RF Rx Instructions: 1 ea vaginally once weekly with pessary betamethasone valerate 0.1 % ointment 1 applic topical DAILY PRN (Reason: rash) Qty: 45 0RF cyclobenzaprine 10 mg tablet See Rx Instructions .ROUTE .COMPLEX Qty: 90 0RF Dose Instruction: take 1 tablet by mouth once daily Rx Instructions: take 1 tablet by mouth once daily (DME) Glucose: Test Strips See Rx Instructions .Route .MEDSUPPLY Qty: 1 0RF Rx Instructions: test glucose once daily levothyroxine 25 mcg tablet 25 mcg PO DAILY Qty: 90 2RF famotidine 20 mg tablet 20 mg PO BID Qty: 60 3RF (DME) OneTouch Ultra Test Strip See Rx Instructions .ROUTE .COMPLEX Qty: 100 11RF Dose Instruction: USE TO TEST BLOOD GLUCOSE ONCE DAILY Rx Instructions: USE TO TEST BLOOD GLUCOSE ONCE DAILY (DME) lancets [OneTouch Delica Plus Lancet] 33 gauge misc See Rx Instructions .ROUTE .COMPLEX Qty: 100 11RF Dose Instruction: TEST BLOOD SUGAR TWICE DAILY Rx Instructions: TEST BLOOD SUGAR TWICE DAILY Referrals: Juana Lara MD [Primary Care Provider] -
--- NOTE | 2024-03-19 13:32 | DI.CT.S_ITS ---
PROCEDURE: CT ABDOMEN PELVIS W CON INDICATIONS: inceased epigastric pain and eructation TECHNIQUE: After the administration of intravenous contrast, axial sections acquired from the lung bases to the pubic symphysis. Coronal and sagittal reformats were performed. For radiation dose reduction, the following was used: automated exposure control, adjustment of mA and/or kV according to patient size. COMPARISON: None. FINDINGS: Image quality: Diagnostic. Lower Chest: Small to moderate right pleural effusion and small left pleural effusion is seen with adjacent compressive atelectasis in posterior aspect of bilateral lung deluna . Hazy ground-glass opacity throughout visualized bilateral mid to lower lung field is seen suggestive of pulmonary edema. Heart size is enlarged, no pericardial effusion. Dense atherosclerotic calcifications throughout coronary vessels are noted. ABDOMEN: Liver: No solid mass. Gallbladder: Gallbladder is distended. At least 3 calcified stones are noted in gallbladder lumen dependent portion measures up to 1.9 cm in size. No gallbladder wall thickening. Biliary ducts: There is intrahepatic biliary ductal dilatation and marked dilatation of common bile duct measures up to 1.7 cm in diameter series 4, image 28. Partially calcified stones are noted in distal common bile duct and measures in aggregate 1.1 cm in size series 2, image 57 and series 4 image 27. Pancreas: No ductal dilation. Spleen: Size is within normal limits. Adrenal Glands: No adrenal nodules. Kidneys and Ureters: No hydronephrosis. No solid mass. No complex renal cystic lesion which requires follow up. Stomach and Bowel: There is no bowel obstruction. No gastric or small bowel wall thickening. Colonic diverticulosis is seen without CT evidence of acute diverticulitis. No abscess collection. Peritoneum: No abnormal intraperitoneal fluid. No free air. Ventral Wall: No significant ventral hernia. Abdominal Nodes: No retroperitoneal or mesenteric adenopathy by size criteria. Vessels: Aorta and inferior vena cava are normal in size. PELVIS: Pelvic Organs: Pessary device is noted. No gross abnormality is seen in uterus and bilateral adnexa. Bladder: No bladder wall thickening, accounting for underdistention. Pelvic Nodes: No enlarged lymph nodes. Miscellaneous: No inguinal hernias are seen. Bones: No aggressive osseous abnormality. IMPRESSION: 1. Cholelithiasis with choledocholithiasis as described above. Intrahepatic biliary ductal dilatation and dilatation of common bile duct measures up to 1.7 cm in diameter. No significant gallbladder wall thickening or pericholecystic fluid. 2. No bowel obstruction or abnormal bowel wall thickening. Colonic diverticulosis without CT evidence of acute diverticulitis. No abscess collection. No free fluid or free air. 3. Right greater than left bilateral pleural effusion and adjacent pulmonary atelectasis. Hazy ground-glass opacities in bilateral aerated lung deluna suggestive of pulmonary edema. Dictated by: Josiah Gabriel M.D. on 03/19/2024 at 14:40 Approved by: Josiah Gabriel M.D. on 03/19/2024 at 14:44
[2024-03-19 13:46] LABS: Add Manual Diff / Slide Review NO; Basophils Absolute Auto 0 /uL (0-100); Basophils Percent Auto 0.2 % (0-2); Eosinophils Absolute Auto 0 /uL (0-450); Hematocrit 35.3 % (36-46); Hemoglobin 11.6 g/dL (12.0-16.0); Lymphocytes Absolute Auto 400 /uL (1100-4500); Lymphocytes Percent Auto 2.8 % (25-40); Mean Corpuscular HGB Conc 32.7 % (30-36); Mean Corpuscular Hemoglobin 28.9 PG (26-34); Mean Corpuscular Volume 88.4 fL (80-100); Monocytes Absolute Auto 600 /uL (0-900); Monocytes Percent Auto 4.5 % (3-14); Neutrophils Absolute Auto 11800 /uL (1500-7000); Neutrophils Percent Auto 92.5 % (50-75); Platelet Count 313 X10^3/uL (150-400); Red Cell Distribution Width 14.7 % (11.6-14.8); White Blood Cell Count 12.8 X10^3/uL (4.5-11.0)
--- NOTE | 2024-03-19 14:05 | PC.NURSE ---
Pt returns from CT. DI reports patient vomited. Pt at 89% on RA while sitting up. Pt placed on 2L via NC and oxygen now 94% on 2L via NC. Provider made aware. Provider also OKAYED vasquez.
[2024-03-19] MEDS: ONDANSETRON 4 MG/2 ML INJ IV (14:11)
[2024-03-19 14:21] LABS: Alanine Aminotransferase 263 IU/L (<35); Albumin 4.4 g/dL (3.5-5.0); Albumin Globulin Ratio 1.6 (1.0-2.8); Alkaline Phosphatase 382 U/L (38-126); Aspartate Aminotransferase 475 IU/L (14-36); BUN Creatinine Ratio 15.8 (6-22); Bilirubin Total 4.4 mg/dL (0.2-1.3); Blood Urea Nitrogen 9 mg/dL (7-17); Calcium 10.2 mg/dL (8.4-10.2); Carbon Dioxide 30 mmol/L (22-32); Chloride 97 mmol/L (98-107); Estimated Glomerular Filt Rate > 60 mL/min (>60); Globulin 2.7 g/dL (1.7-4.1); Glucose 197 mg/dL (80-110); HEMOLYSIS < 15 (0-50); Lipase 68 U/L (23-300); Potassium 3.6 mmol/L (3.4-5.1); Sodium 137 mmol/L (137-145); Total Protein 7.1 g/dL (6.3-8.2)
[2024-03-19 15:11] LABS: Bacteria Urine Occasional (0-1); Culture Indicated Urine Cult Not Indicated; RBC Urine None Seen (0-5/HPF); Squamous Epithelial Cell Urine 1-5 /HPF (0-5/HPF); Urine Volume 10mL (spun); WBC Urine 1-5/HPF (0-5/HPF)
[2024-03-19] MEDS: HYDROMORPHONE 0.5 MG INJ IV ×2 (15:32→23:10)
[2024-03-19] MEDS: cefTRIAXone 2,000 MG in SODIUM CHLORIDE 0.9% 100 ML 200 MG IV (15:37)
[2024-03-19] MEDS: SODIUM CHLORIDE 0.9% 1,000 ML 150 ML IV (16:09)
[2024-03-19] MEDS: metroNIDAZOLE 500 MG/100 ML PIGGYBACK 100 MG IV (16:15)
--- NOTE | 2024-03-19 19:05 | PC.NURSE ---
Provider made aware of patient vitals. New orders as per AUG.
[2024-03-19] MEDS: KETOROLAC 30 MG/ML VIAL 15 MG IV (19:11)
[2024-03-19 20:16] LABS: INR 1.1 (0.9-1.3); Prothrombin Time 12.8 SECONDS (9.4-12.5)
--- NOTE | 2024-03-19 23:11 | PC.NURSE ---
Pt has diagnosis of choledocholithiasis and need to be transferred for higher level of care. I have talked to the following facilities. [facility]-> Spoke with Bony around 2009 to follow up on the existing transfer request and she said that they most likely will not have any bed availability tonight and that the pt will remain on waitlist. Pt is still on the waitlist at this time [facility]-> Spoke with Ivan around 2011 to follow up on the existing transfer request and he said that they will no have any availability tonight due to several boarding patients but will keep the patient on the waitlist. Pt is still on the waitlist at this time [facility]-> Spoke with Lin at 2014 to follow up on the existing transfer request and he actually at this time had the GI specialist and Hospitalist on the phone as well to consult and accept the pt. Pt was accepted at [address] Beatty but don?t have any bed available at this time so pt will remain on waitlist until a bed becomes available. Pt is on the waitlist at this time -> Spoke with Carmelo around 2019 to follow up on the existing transfer request and she said that they are very behind with requests right now but will get back to us as soon as they can. But will most likely not have any beds tonight. Pt is still on the waitlist at this time [facility]-> Spoke with Jammie at 2023 and she said that they will not have any availability for the next several days but to call back if we would like to place the pt on the waitlist [facility]-> Spoke with Prerna at 2024 and she said that they will not have any availability until the late afternoon tomorrow but to call back if we need to place the pt on the waitlist [facility]-> Spoke with the hospital mixing and molding machine operator at 2025 and she said that they will not have any availability. They are in ?[facility]? status and cannot take any patients for the next several days [facility] was called at 2057 and spoke with Merry. I gave Merry the intake on the pt as well as the list of the facilities I have already reached out to. She said she will call with any updates that she may have At 2220 Xena Molina called back with a bed placement and the number for the nurse to give report. Dr. Beatty is still the accepting. Transport was arranged and [facility] was notified, pt was removed from all waitlists. KEYLA Hidalgo and Dr. Bolivar notified
[2024-03-20] VITALS: BP 143/69; PULSE 100; RESP 16; O2SAT 95
[2024-03-20] MEDS: SODIUM CHLORIDE 0.9% 1,000 ML 150 ML IV (00:16)
[2024-03-20 00:30] VITALS: BP 146/69; PULSE 101; RESP 23; O2SAT 96
[2024-03-20] MEDS: ONDANSETRON 4 MG/2 ML INJ IV (00:56)
[2024-03-20] MEDS: HYDROMORPHONE 0.5 MG INJ IV (00:56)
== END 2024-03-20 01:11 | disposition short-term general hospital (02) ==
PROVIDERS: Emergency Medicine; Emergency Provider Emergency Medicine; PCP Family Medicine
DX: K80.51 Calculus of bile duct without cholangitis or cholecystitis with obstruction (principal); K80.71 Calculus of gallbladder and bile duct without cholecystitis with obstruction
CPT/HCPCS: 36415; 74177; 80053; 81003; 81015; 83690; 85025; 85610; 87086; 93005; 93010; 96361; 96365; 96367; 96375; 96376; 99284; J0696; J1170; J1885; J2405; Q9967